=== PATIENT | female | born 1990 | race Caucasian/White ===

== ENCOUNTER 2018-09-16 13:42 | Emergency (ER) | payer MEDICAID ==
[~2018-09-16] VITALS: Ht 167.6 cm; Wt 84.4 kg
[2018-09-16 14:05] VITALS: BP 126/83; Ht 167.6 cm; Wt 84.4 kg
== END 2018-09-16 17:16 | disposition home or self-care (01) ==
LOC: ED 13:42
DX: T78.40XA Allergy, unspecified, initial encounter (principal); Z98.51 Tubal ligation status; X58.XXXA Exposure to other specified factors, initial encounter
CPT/HCPCS: J7512; Q0163